=== PATIENT | female | born 1975 | race Caucasian/White ===

== ENCOUNTER 2018-04-29 11:11 | Emergency (ER) | payer BC ==
--- NOTE | 2018-04-29 12:51 | EKG ---
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
[2018-04-29 13:13] LABS: Absolute Lymphocytes (CBC) 1.2 K/uL (0.7-4.9); Absolute Monocytes 0.6 K/uL (0.1-1.3); Absolute Neutrophil 5.4 K/uL (1.8-8.0); Basophils % 0.4 % (0-1.3); Eosinophils % 0.4 % (0-4.4); Hematocrit 40.5 % (36.0-45.0); Lymphocytes % 17.1 % (15.3-44.8); MPV 7.8 fL (7.6-11.3); Monocytes % 7.7 % (3.3-12.3); RBC Red Blood Cell Count 4.33 M/uL (3.86-4.86)
[2018-04-29 13:28] LABS: Protime INR 1.07
[2018-04-29 13:32] LABS: ALT/SGPT 19 U/L (12-78); AST/SGOT 32 U/L (15-37); Alkaline Phosphatase 79 U/L (45-117); BUN Blood Urea Nitrogen 11 mg/dL (7-18); Bicarbonate 27 mmol/L (21-32); Bilirubin Direct 0.2 mg/dL (0-0.2); Bilirubin Total 0.4 mg/dL (0.2-1.0); Glucose Level 83 mg/dL (74-106); Magnesium 2.1 mg/dL (1.8-2.4); NT PRO-BNP 147 pg/mL (<125); Protein, Total 8.2 g/dL (6.4-8.2); Sodium Level 140 mmol/L (136-145); Troponin (Emerg Dept Use Only) < 0.02 ng/mL (0.0-0.045)
[2018-04-29 14:07] LABS: Urine Blood 1+ (NEG); Urine Glucose NEGATIVE (NEG); Urine Protein NEGATIVE (NEG)
--- NOTE | 2018-04-29 14:08 | RAD REPORT ---
EXAM DESCRIPTION: RAD - Chest Single View - 04/29/2018 1:54 pm CLINICAL HISTORY: CHEST PAIN Chest pain. COMPARISON: CHEST PA AND LAT 2 VIEW dated 06/30/2015 FINDINGS: Portable technique limits examination quality. The lungs are grossly clear. The heart is normal in size. No displaced fractures. IMPRESSION: No acute intrathoracic process suspected.
--- NOTE | 2018-04-29 14:54 | EDPHYS ---
Physician Documentation [facility] Name: Gloria Harper Age: 43 yrs Sex: Female : 1975 Arrival Date: 04/29/2018 Time: 11:12 Bed 26 Private MD: Eugenia Castro F ED Physician Aiden Hurt HPI: 04/29 14:44 This 43 yrs old Female presents to ER via Ambulatory with complaints of Chest gs Tightness, High Blood Pressure. 14:44 The patient or guardian reports chest pain that is located primarily in the anterior gs chest wall. Onset: 2 week(s) ago. The pain does not radiate. Associated signs and symptoms: Pertinent negatives: diaphoresis, dizziness, shortness of breath, syncope, vomiting. The chest pain is described as a heaviness. Duration: The patient or guardian reports multiple episodes, that are intermittent, that wax and wane, with no pattern. Modifying factors: The symptoms are alleviated by nothing. the symptoms are aggravated by nothing. Severity of pain: At its worst the pain was moderate in the emergency department the pain has improved markedly. started after taking course of steroids . 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 - Social history:: Smoking status: Patient/guardian denies using tobacco. - Ebola Screening: : No symptoms or risks identified at this time. ROS: 14:44 All other systems are negative. gs Exam: 14:44 Head/Face: Normocephalic, atraumatic. Eyes: Pupils equal round and reactive to light, gs extra-ocular motions intact. Lids and lashes normal. Conjunctiva and sclera are non-icteric and not injected. Cornea within normal limits. Periorbital areas with no swelling, redness, or edema. ENT: Nares patent. No nasal discharge, no septal abnormalities noted. Tympanic membranes are normal and external auditory canals are clear. Oropharynx with no redness, swelling, or masses, exudates, or evidence of obstruction, uvula midline. Mucous membranes moist. Neck: Trachea midline, no thyromegaly or masses palpated, and no cervical lymphadenopathy. Supple, full range of motion without nuchal rigidity, or vertebral point tenderness. No Meningismus. Chest/axilla: Normal chest wall appearance and motion. Nontender with no deformity. No lesions are appreciated. Cardiovascular: Regular rate and rhythm with a normal S1 and S2. No gallops, murmurs, or rubs. Normal PMI, no JVD. No pulse deficits. Respiratory: Lungs have equal breath sounds bilaterally, clear to auscultation and percussion. No rales, rhonchi or wheezes noted. No increased work of breathing, no retractions or nasal flaring. Abdomen/GI: Soft, non-tender, with normal bowel sounds. No distension or tympany. No guarding or rebound. No evidence of tenderness throughout. Back: No spinal tenderness. No costovertebral tenderness. Full range of motion. Skin: Warm, dry with normal turgor. Normal color with no rashes, no lesions, and no evidence of cellulitis. MS/ Extremity: Pulses equal, no cyanosis. Neurovascular intact. Full, normal range of motion. Neuro: Awake and alert, GCS 15, oriented to person, place, time, and situation. Cranial nerves II-XII grossly intact. Motor strength 5/5 in all extremities. Sensory grossly intact. Cerebellar exam normal. Normal gait. 14:44 Constitutional: The patient appears alert, awake. 14:44 ECG was reviewed by the Attending Physician. Vital Signs: 11:42 BP 158 / 94; Pulse 92; Resp 16 S; Temp 98.0(TE); Pulse Ox 100% on R/A; Weight 54.43 kg aa5 (R); Height 5 ft. 5 in. (165.10 cm) (R); Pain 5/10; 13:40 BP 142 / 78; Pulse 84; Resp 16; Temp 97.2; Pulse Ox 99% on R/A; Pain 2/10; ch 14:17 BP 138 / 71; Pulse 86; Resp 12; Pulse Ox 99% on R/A; Pain 2/10; ch 14:46 BP 131 / 76; Pulse 84; Resp 15; Temp 98.2; Pulse Ox 99% on R/A; Pain 0/10; ch 15:22 BP 132 / 84; Pulse 71; Resp 16; Temp 98.1; Pulse Ox 99% on R/A; Pain 0/10; ch 11:42 Body Mass Index 19.97 (54.43 kg, 165.10 cm) aa5 MDM: 12:51 Patient medically screened. gs 14:44 Differential diagnosis: chest wall pain. Data reviewed: vital signs, nurses notes. gs 14:52 Differential diagnosis: coronary artery disease pneumonia. Counseling: I had a detailed discussion with the patient and/or guardian regarding: the presence of at least one elevated blood pressure reading (>120/80) during this emergency department visit. Response to treatment: the patient's symptoms have resolved after treatment. Special discussion: I have referred the patient to see his PCP for further evaluation of high blood pressure. 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 04/29 12:39 Order name: Basic Metabolic Panel 04/29 12:39 Order name: CBC with Diff 04/29 12:39 Order name: LFT's 04/29 12:39 Order name: Magnesium; Complete Time: 14:19 04/29 12:39 Order name: NT PRO-BNP; Complete Time: 14:19 04/29 12:39 Order name: PT-INR; Complete Time: 14:19 04/29 12:39 Order name: Troponin (emerg Dept Use Only); Complete Time: 14:19 04/29 12:39 Order name: XRAY Chest (1 view); Complete Time: 14:19 04/29 12:39 Order name: EKG; Complete Time: 12:40 04/29 12:39 Order name: Cardiac monitoring; Complete Time: 13:04 04/29 12:39 Order name: Basic Metabolic Panel; Complete Time: 14:19 EDMO 04/29 12:39 Order name: CBC with Automated Diff; Complete Time: 14:19 EDMO 04/29 12:39 Order name: Liver (Hepatic) Function; Complete Time: 14:19 EDMO 04/29 13:50 Order name: Urine Dipstick--Ancillary (enter results); Complete Time: 14:19 eb 04/29 12:39 Order name: EKG - Nurse/Tech; Complete Time: 14:27 04/29 12:39 Order name: IV Saline Lock; Complete Time: 13:03 04/29 12:39 Order name: Labs collected and sent; Complete Time: 13:03 04/29 12:39 Order name: O2 Per Protocol; Complete Time: 13:03 04/29 12:39 Order name: O2 Sat Monitoring; Complete Time: 13:04 04/29 12:39 Order name: Urine Test (obtain specimen); Complete Time: 14:23 04/29 12:39 Order name: Urine Dipstick-Ancillary (obtain specimen); Complete Time: 14:23 EC:44 Rate is 70 beats/min. Rhythm is regular. FL interval is prolonged. QRS interval is gs normal. T waves are Flattened in leads III, aVL, aVF. No ST changes noted. Clinical impression: Abnormal EKG without significant change. Interpreted by me. Administered Medications: No medications were administered Point of Care Testing: Urine : 14:23 hCG Reading: Negative; Control Reading: Negative; ls4 Disposition: 04/29/18 14:54 Discharged to Home. Impression: Chest pain, unspecified. - Condition is Stable. - Discharge Instructions: Nonspecific Chest Pain, Managing Your Hypertension. - Medication Reconciliation Form, Thank You Letter, Antibiotic Education, Prescription Opioid Use form. - Follow up: Private Physician; When: 2 - 3 days; Reason: Re-evaluation by your physician. Follow up: Misael Rogers MD; When: 2 - 3 days; Reason: Re-evaluation by your physician. Signatures: Dispatcher [employer] EDMO Mckenzie Tadeo RN RN Deborah Asher RN RN aa5 Aiden Hurt MD MD Corrections: (The following items were deleted from the chart) 14:54 14:54 04/29/2018 14:54 Discharged to Home. Impression: Chest pain, unspecified. Condition is Stable. Forms are Medication Reconciliation Form, Thank You Letter, Antibiotic Education, Prescription Opioid Use. Follow up: Private Physician; When: 2 - 3 days; Reason: Re-evaluation by your physician. 15:23 14:54 04/29/2018 14:54 Discharged to Home. Impression: Chest pain, unspecified. Condition is Stable. Discharge Instructions: Nonspecific Chest Pain. Forms are Medication Reconciliation Form, Thank You Letter, Antibiotic Education, Prescription Opioid Use. Follow up: Private Physician; When: 2 - 3 days; Reason: Re-evaluation by your physician. Follow up: Misael Rogers; When: 2 - 3 days; Reason: Re-evaluation by your physician. gs
--- NOTE | 2018-04-29 14:54 | ER ---
Nurse's Notes [facility] Name: Gloria Harper Age: 43 yrs Sex: Female : 1975 Arrival Date: 04/29/2018 Time: 11:12 Bed 26 Private MD: Eugenia Castro F Diagnosis: Chest pain, unspecified Presentation: 04/29 11:39 Presenting complaint: Patient states: mid-sternal chest pain that began 2 weeks ago. Pt aa5 states "I've been getting chest pains ever since I got a steroid shot at urgent care for some hives". Pt states "I've also been having blurry vision on and off too". Pt also reports headache. Denies nausea and vomiting. Pt states "my blood pressure has been running high and the highest was about 180/90". Transition of care: patient was not received from another setting of care. Onset of symptoms was March 2018. Risk Assessment: Do you want to hurt yourself or someone else? Patient reports no desire to harm self or others. Initial Sepsis Screen: Does the patient meet any 2 criteria? No. Patient's initial sepsis screen is negative. Does the patient have a suspected source of infection? No. Patient's initial sepsis screen is negative. Care prior to arrival: None. 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 - Social history:: Smoking status: Patient/guardian denies using tobacco. - Ebola Screening: : No symptoms or risks identified at this time. Screenin:17 Abuse screen: Denies threats or abuse. Denies injuries from another. Nutritional ch screening: No deficits noted. Tuberculosis screening: No symptoms or risk factors identified. Fall Risk None identified. Assessment: 13:40 Reassessment: Patient appears in no apparent distress at this time. Patient and/or ch family updated on plan of care and expected duration. Pain level reassessed. Patient is alert, oriented x 3, equal unlabored respirations, skin warm/dry/pink. General: Appears in no apparent distress. comfortable, Behavior is calm, cooperative, appropriate for age. 13:40 Pain: Complains of pain in chest Pain does not radiate. Pain currently is 2 out of 10 ch on a pain scale. Pain began suddenly, 1 day ago. Neuro: No deficits noted. Cardiovascular: Reports chest pain, Heart tones S1 S2 present Capillary refill < 3 seconds in bilateral fingers toes Clubbing of nail beds is absent Patient's skin is warm and dry. Pulses are all present. Rhythm is sinus rhythm. Respiratory: Airway is patent Respiratory effort is even, unlabored, Breath sounds are clear bilaterally. GI: No signs and/or symptoms were reported involving the gastrointestinal system. : No signs and/or symptoms were reported regarding the genitourinary system. Derm: Skin is pink, warm \\T\\ dry. 14:46 Reassessment: Patient appears in no apparent distress at this time. No changes from previously documented assessment. Patient and/or family updated on plan of care and expected duration. Pain level reassessed. Patient is alert, oriented x 3, equal unlabored respirations, skin warm/dry/pink. Patient states feeling better. Patient states symptoms have improved. 15:22 Reassessment: Patient appears in no apparent distress at this time. Patient and/or family updated on plan of care and expected duration. Pain level reassessed. Patient is alert, oriented x 3, equal unlabored respirations, skin warm/dry/pink. Patient denies pain at this time. Patient states feeling better. Patient states symptoms have improved. Vital Signs: 11:42 BP 158 / 94; Pulse 92; Resp 16 S; Temp 98.0(TE); Pulse Ox 100% on R/A; Weight 54.43 kg aa5 (R); Height 5 ft. 5 in. (165.10 cm) (R); Pain 5/10; 13:40 BP 142 / 78; Pulse 84; Resp 16; Temp 97.2; Pulse Ox 99% on R/A; Pain 2/10; ch 14:17 BP 138 / 71; Pulse 86; Resp 12; Pulse Ox 99% on R/A; Pain 2/10; ch 14:46 BP 131 / 76; Pulse 84; Resp 15; Temp 98.2; Pulse Ox 99% on R/A; Pain 0/10; ch 15:22 BP 132 / 84; Pulse 71; Resp 16; Temp 98.1; Pulse Ox 99% on R/A; Pain 0/10; ch 11:42 Body Mass Index 19.97 (54.43 kg, 165.10 cm) 5 ED Course: 11:12 Patient arrived in ED. as 11:12 Eugenia Castro MD is Private Physician. as 11:37 Arm band placed on. aa5 11:40 Triage completed. aa5 12:04 Cindi Cuevas, RN is Primary Nurse. ls4 12:25 EKG done, by metallographic technician. reviewed by Jason Gómez MD. 3 12:32 Aiden Hurt MD is Attending Physician. gs 13:00 No apparent distress. Resting quietly. ch 13:00 No provider procedures requiring assistance completed. Inserted saline lock: 20 gauge ch in left antecubital area, using aseptic technique. Blood collected. 13:00 Patient maintains SpO2 saturation greater than 95% on room air. ch 13:04 Basic Metabolic Panel Sent. ls4 13:04 CBC with Diff Sent. ls4 13:55 XRAY Chest (1 view) In Process Unspecified. EDMS 14:17 Patient has correct armband on for positive identification. Placed in gown. Bed in low ch position. Call light in reach. equipment monitor phototypesetting on. Pulse ox on. NIBP on. Warm blanket given. 14:54 Misael Rogers MD is Referral Physician. gs 15:22 IV discontinued, intact, bleeding controlled, No redness/swelling at site. Pressure ch dressing applied. Administered Medications: No medications were administered Point of Care Testing: Urine : 14:23 hCG Reading: Negative; Control Reading: Negative; ls4 Outcome: 14:54 Discharge ordered by . gs 15:22 Discharged to home ambulatory. ch 15:22 Condition: improved 15:22 Discharge instructions given to patient, Instructed on discharge instructions, follow up and referral plans. 15:23 Patient left the ED. ch Signatures: Dispatcher [employer] EDMS Mckenzie Tadeo, RN RN Cony Rivas Audri, RN RN [facility] Aiden Hurt MD MD Mikaela Conn [facility] Cindi Cuevas RN RN ls4 Corrections: (The following items were deleted from the chart) 11:42 11:39 Presenting complaint: Patient states: mid-sternal chest pain that began 2 weeks aa5 ago. Pt states "I've been getting chest pains ever since I got a steroid shot at urgent care for some hives". Pt states "I've also been having blurry vision on and off too". Pt also reports headache. Denies nausea and vomiting. aa5
== END 2018-04-29 15:23 | disposition home or self-care (01) ==
LOC: ER 11:11
DX: R07.9 Chest pain, unspecified (principal); R94.31 Abnormal electrocardiogram [ECG] [EKG]; I51.7 Cardiomegaly
CPT/HCPCS: 36415; 71045; 80048; 80076; 81003; 83735; 83880; 84484; 85025; 85610; 93005; 99285